=== PATIENT | female | born 1955 | race Caucasian/White ===

== ENCOUNTER 2018-03-10 07:23 | Outpatient (CLI) | payer OTHER | END 2018-03-10 16:07 | disposition home or self-care (01) | LOC: RX STUDY 07:23 | DX: R10.11 Right upper quadrant pain (principal); R12 Heartburn; K44.9 Diaphragmatic hernia without obstruction or gangrene ==

== ENCOUNTER 2021-02-07 08:35 | Outpatient (CLI) | payer OTHER | END 2021-02-07 08:47 | disposition home or self-care (01) | LOC: RX STUDY 08:35 | PROVIDERS: ATTEND Internal Medicine Gastroenterology | DX: K21.9 Gastro-esophageal reflux disease without esophagitis (principal); R10.84 Generalized abdominal pain ==